=== PATIENT | female | born 1955 | race Caucasian/White ===

== ENCOUNTER → 2017-10-03 09:53 | Day surgery (SDC) | payer BC ==
[~2017-10-03 09:53] MED LIST: Buffered Lidocaine 0.9% SYRIN* 5 ML/SYR SYRINGE INTRADERM ONE; Buffered Lidocaine 0.9% SYRIN* 5 ML/SYR SYRINGE ONE; Cyclopentolate 1% OPTH.SOL* 2 ML BTL ONE; Ketorolac 0.5% OPHTH (NF) 0.5 % 5 ML BTL ONE; Lidocaine 1% MPF wEPI 200,000* 30 ML SDV ONE; Lidocaine 1% MPF* 2 ML VIAL ONE; Lidocaine 2% EPI 1:200000 MPF* 20 ML VIAL ONE; Lidocaine 2% PF * 5 ML VIAL ONE; Midazolam* 1 MG/ML 2 ML VIAL (2 MG) ONE; Neomycin/Polymy/Dex OPTH.SUSP* MAXITROL 0.1% 5 ML ONE; Phenylephrine 2.5% OPTH.SOL* 2 ML BTL ONE; Povidone Iodine 5% OPTH* 30 ML BTL ONE; Proparacaine 0.5% OPHTH.SOL* 15 ML BTL ONE; Propofol* 10 MG/ML 20 ML BTL IV PUSH ONE; acetaZOLAMIDE TAB* 250 MG ONE
[2017-10-03 13:31] VITALS: BP 109/77
--- NOTE | 2017-10-04 03:51 | OP ---
DATE OF OPERATION: 10/03/17 - [facility] DATE OF : 53 SURGEON: Carmelo Jacques M.D. PREOPERATIVE DIAGNOSIS: Cataract, right eye. POSTOPERATIVE DIAGNOSIS: Cataract, right eye. OPERATIVE PROCEDURE: Extracapsular cataract extraction with intraocular lens implant right eye. DESCRIPTION OF PROCEDURE: The patient was brought to the operating room after being given 1/2% Alcaine with epinephrine drops in the preoperative area. The eye was prepped and draped in the usual sterile fashion. Sterile drape and eyelid speculum were placed. Again, topical 1/2% Alcaine with epinephrine was given. A paracentesis incision was made at the 9 o'clock position with the No.75 blade. Clear cornea incision 2.2 x 2.2-mm was created at the 12 o'clock position starting at the anterior limbus using the 2.2-mm keratome. The anterior chamber was irrigated with 0.4 mL of 1% non-preservative intracameral lidocaine and filled with DisCoVisc. A capsulorrhexis was completed using the cystotome and the Utrata forceps. Hydrodissection was performed with balanced salt solution. The lens nucleus was removed with the Phacoemulsification handpiece without incident. Cortex was removed with the irrigation-aspiration handpiece. The capsular bag was re-inflated using DisCoVisc, and an [id number] 26 implant was inserted with the shooter, oriented to the 159 degree meridian. Horizontal reference meneses were made with the patient seated in the preoperative area. The irrigation-aspiration handpiece was used to remove all residual DisCoVisc. The eye was refilled with balanced salt solution and the wound checked and found to be watertight. Topical Maxitrol drops were given. [id number]/[facility] #: [id number] [facility]
== END | disposition home or self-care (01) ==
LOC: OREAST 09:53
PROVIDERS: ATTEND Specialist
DX: H25.11 Age-related nuclear cataract, right eye (principal); Z79.82 Long term (current) use of aspirin; Z79.899 Other long term (current) drug therapy
CPT/HCPCS: A9270-GY; J2001; J2250; J2704; V2787

== ENCOUNTER 2017-10-10 06:38 | Day surgery (SDC) | payer BC ==
[~2017-10-10 06:38] MED LIST changes: +Acetaminophen TAB* 325 MG PO PRN; -Buffered Lidocaine 0.9% SYRIN* 5 ML/SYR SYRINGE ONE; -Cyclopentolate 1% OPTH.SOL* 2 ML BTL ONE; -Ketorolac 0.5% OPHTH (NF) 0.5 % 5 ML BTL ONE; -Lidocaine 1% MPF wEPI 200,000* 30 ML SDV ONE; -Lidocaine 1% MPF* 2 ML VIAL ONE; -Lidocaine 2% EPI 1:200000 MPF* 20 ML VIAL ONE; -Lidocaine 2% PF * 5 ML VIAL ONE; -Midazolam* 1 MG/ML 2 ML VIAL (2 MG) ONE; -Neomycin/Polymy/Dex OPTH.SUSP* MAXITROL 0.1% 5 ML ONE; -Phenylephrine 2.5% OPTH.SOL* 2 ML BTL ONE; -Povidone Iodine 5% OPTH* 30 ML BTL ONE; -Proparacaine 0.5% OPHTH.SOL* 15 ML BTL ONE; -Propofol* 10 MG/ML 20 ML BTL IV PUSH ONE; -acetaZOLAMIDE TAB* 250 MG ONE
[2017-10-10] MEDS ORDERED: Midazolam* 1 MG/ML 2 ML VIAL (2 MG) ONE (07:43)
[2017-10-10] MEDS ORDERED: fentaNYL* 50 MCG/ML 2 ML VIAL (100 MCG VIAL) ONE (08:02)
[2017-10-10] MEDS ORDERED: Propofol* 10 MG/ML 20 ML BTL IV PUSH ONE (08:03)
[2017-10-10] MEDS ORDERED: Lidocaine 2% PF * 5 ML VIAL ONE (08:03)
[2017-10-10 08:29] VITALS: BP 109/67
--- NOTE | 2017-10-10 08:55 | OP ---
OPERATIVE NOTE: DATE OF OPERATION: 10/10/17 DATE OF : 53 SURGEON: Carmelo Jacques M.D. PREOPERATIVE DIAGNOSIS: Cataract, left eye. POSTOPERATIVE DIAGNOSIS: Cataract, left eye. OPERATIVE PROCEDURE: Extracapsular cataract extraction with intraocular lens implant, left eye with IOL. PROCEDURE: The patient was brought to the operating room after being given 1/2% Alcaine with epineph rine drops in the preoperative area. The eye was prepped and draped in the usual sterile fashion. S terile drape and eyelid speculum were placed. Again, topical 1/2% Alcaine with epinephrine was given . A paracentesis incision was made at the 3 o'clock position with the No.75 blade. Clear cornea inc ision 2.2 x 2.2-mm was created at the 6 o'clock position starting at the anterior limbus using the 2. 2-mm keratome. The anterior chamber was irrigated with 0.4 mL of 1% non-preservative intracameral li docaine and filled with DisCoVisc. A capsulorrhexis was completed using the cystotome and the Utrata forceps. Hydrodissection was performed with balanced salt solution. The lens nucleus was removed wi th the Phacoemulsification handpiece without incident. Cortex was removed with the irrigation-aspira tion handpiece. The capsular bag was re-inflated using DisCoVisc and an [id number] 25.5 implant was inse rted with the shooter oriented to the 41-degree meridian. Horizontal reference meneses were made with the patient in seated position in the preoperative area. The irrigation-aspiration handpiece was use d to remove all residual DisCoVisc. The eye was refilled with balanced salt solution and the wound c hecked and found to be watertight. Topical Maxitrol drops were given. [id number]/[facility] #: [id number]
[2017-10-10] MEDS ORDERED: Neomycin/Polymy/Dex OPTH.SUSP* MAXITROL 0.1% 5 ML ONE (12:59)
[2017-10-10] MEDS ORDERED: Phenylephrine 2.5% OPTH.SOL* 2 ML BTL ONE (12:59)
[2017-10-10] MEDS ORDERED: Lidocaine 1% MPF* 2 ML VIAL ONE (12:59)
[2017-10-10] MEDS ORDERED: Proparacaine 0.5% OPHTH.SOL* 15 ML BTL ONE (12:59)
[2017-10-10] MEDS ORDERED: Ketorolac 0.5% OPHTH (NF) 0.5 % 5 ML BTL ONE (12:59)
[2017-10-10] MEDS ORDERED: Povidone Iodine 5% OPTH* 30 ML BTL ONE (12:59)
[2017-10-10] MEDS ORDERED: acetaZOLAMIDE TAB* 250 MG ONE (12:59)
[2017-10-10] MEDS ORDERED: Cyclopentolate 1% OPTH.SOL* 2 ML BTL ONE (12:59)
[2017-10-10] MEDS ORDERED: Lidocaine 2% EPI 1:200000 MPF* 20 ML VIAL ONE (12:59)
== END 2017-10-10 08:40 | disposition home or self-care (01) ==
LOC: OREAST 06:38
PROVIDERS: ATTEND Specialist
DX: H25.12 Age-related nuclear cataract, left eye (principal); E03.9 Hypothyroidism, unspecified; A60.00 Herpesviral infection of urogenital system, unspecified; F41.9 Anxiety disorder, unspecified; Z85.3 Personal history of malignant neoplasm of breast; Z87.891 Personal history of nicotine dependence; F11.90 Opioid use, unspecified, uncomplicated
CPT/HCPCS: A9270-GY; J2250; J2704; J3010; V2787

== ENCOUNTER 2017-12-26 10:29 | Day surgery (SDC) | payer BC ==
[~2017-12-26 10:29] MED LIST changes: -Acetaminophen TAB* 325 MG PO PRN; +Famotidine TAB* 20 MG PO ONE; +Scopolamine 1.5 mg* PATCH TRANSDERM ONE; +Sodium Citrate/Citric Acid* 15 ML UDC PO ONE
[2017-12-26] MEDS ORDERED: Sodium Citrate/Citric Acid* 15 ML UDC ONE (10:36)
[2017-12-26] MEDS ORDERED: Famotidine IV* 10 MG/ML 2 ML (20 mg) ONE (10:36)
[2017-12-26] MEDS ORDERED: Scopolamine 1.5 mg* PATCH ONE (10:36)
[2017-12-26] MEDS ORDERED: Buffered Lidocaine 0.9% SYRIN* 5 ML/SYR SYRINGE ONE (10:37)
[2017-12-26] MEDS ORDERED: Famotidine TAB* 20 MG ONE (10:47)
[2017-12-26] MEDS ORDERED: Lidocaine 2% EPI 1:200000 MPF* 20 ML VIAL ONE (13:05)
[2017-12-26] MEDS ORDERED: Dexamethasone IV* 4 MG/ML 1 ML (4 MG) ONE (13:32)
[2017-12-26] MEDS ORDERED: Succinylcholine* 20 MG/ML 10 ML VIAL ONE (13:32)
[2017-12-26] MEDS ORDERED: Propofol* 10 MG/ML 20 ML BTL IV PUSH ONE (13:32)
[2017-12-26] MEDS ORDERED: Ondansetron INJ* 2 MG/ML VIAL ONE (13:32)
[2017-12-26] MEDS ORDERED: Lidocaine 2% PF * 5 ML VIAL ONE (13:33)
[2017-12-26] MEDS ORDERED: fentaNYL* 50 MCG/ML 2 ML VIAL (100 MCG VIAL) ONE (13:37)
[2017-12-26] MEDS ORDERED: Naloxone* 0.4 MG/ML 1 ML VIAL IV PRN (14:01)
[2017-12-26] MEDS ORDERED: fentaNYL* 50 MCG/ML 2 ML VIAL (100 MCG VIAL) IV PRN (14:01)
[2017-12-26] MEDS ORDERED: DiMENhydriNATE IV* 50 MG/ML VIAL IV PUSH PRN (14:01)
[2017-12-26] MEDS ORDERED: EPHEDrine (Pressors)* 50 MG/ML VIAL ONE (14:10)
[2017-12-26] MEDS ORDERED: HYDROcodone/ACETAMIN 5-325 MG* 1 TAB ONE (15:02)
[2017-12-26 16:15] VITALS: BP 133/82
--- NOTE | 2017-12-27 11:24 | OP ---
DATE OF OPERATION: 12/26/17 - [facility] DATE OF : 53 SURGEON: Dar Brandon M.D. PRE-OP DIAGNOSIS: Thyroglossal duct cyst. POST-OP DIAGNOSIS: Thyroglossal duct cyst. OPERATIVE PROCEDURE: Excision of thyroglossal duct cyst with mid portion of hyoid bone. BRIEF HISTORY: This 62-year-old presented with a midline neck mass highly suspicious for thyroglossal duct cyst. DESCRIPTION OF PROCEDURE: The patient was taken to the operating room, general anesthesia was given, the patient was intubated. Neck was then prepped and draped in the usual fashion. Curvilinear incision was made approximately just below the hyoid and the strap muscles were identified and divided out laterally. The cyst was identified. Careful sharp and blunt dissection was carried out of the cyst throughout until it was skeletonized on to the hyoid bone. The hyoid bone was then skeletonized removing the suprahyoid muscles and the infrahyoid muscles. Once this was done, the mid portion of the hyoid between the cornu of the hyoid was cut and the cyst in the hyoid bone was tracked as far as we could in the tongue base and then removed. With this in mind, the wound was copiously irrigated. Small TLS drain was applied. The wound was closed in 2 layers. The patient was then awakened and sent to recovery room in stable condition. Instrument and sponge count correct. Blood loss minimal. [id number]/[facility] #: [id number] [facility]D
[2017-12-29] MEDS ORDERED: Scopolamine PATCH Remove* 1 NOTE MISC PATCH OFF ONE (06:00)
== END 2017-12-26 16:15 | disposition home or self-care (01) ==
LOC: OR 10:29
PROVIDERS: ATTEND Otolaryngology
DX: Q89.2 Congenital malformations of other endocrine glands (principal); E03.9 Hypothyroidism, unspecified; M19.90 Unspecified osteoarthritis, unspecified site; K21.9 Gastro-esophageal reflux disease without esophagitis
CPT/HCPCS: 88305; 88311; A9270-GY; J0330; J1100; J2405; J2704; J3010

== ENCOUNTER 2017-12-30 09:38 | Emergency (ER) | payer BC ==
--- OUTSIDE RECORDS SUMMARY | 2017-12-30 09:44 | XMS REPORT ---
:1955 External Reference #:[id number] Author Organization [facility] Address [address] [place] [address] Phone [phone] Care Team Providers Name Role Phone Monty Oneill M.D. Primary Care Physician Unavailable Payers Type Date Identification Numbers Payment Provider Subscriber Commercial Policy Number: [id number] [employer] Jil Mahoney PayID: [id number] [address] [address] [place] [address] Problems Date Description Provider Status Onset: Seasonal allergy Active Onset: Carcinoma of breast Active Note: (H/O) Onset: 09/18/2017 Nuclear senile cataract Carmelo Jacques M.D. Active Onset: 10/06/2017 Presence of intraocular lens Tamy Olson O.D. Active Onset: 12/11/2017 Vitreous degeneration Tamy Olson O.D. 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 Family History Date Family Member(s) Problem(s) Comments Father No Current Problems Mother No Current Problems First Sister Glaucoma Grandfather Glaucoma Social History Type Date Description Comments Marital Status Legal Status: Occupation Self-Employed [employer] Work Status Retired ETOH Use Occasionally consumes alcohol Smoking Patient has never smoked Recreational Drug Use Denies Drug Use Daily Caffeine Consumes on average 2 cups of regular coffee per day Allergies, Adverse Reactions, Alerts Date Description Reaction Status Severity Comments 09/18/2017 NKDA active 09/18/2017 Shellfish active Medications Medication Date Status Form Strength Qnty SIG Indications Ordering Provider Artificial 10/03/ Active Solution 0.2-0.2-1% as needed Carmelo Jacques M.D. Valacyclovir / Active Tablets 500mg Unknown HCL 0000 Cymbalta / Active Caps DR Immanuel 60mg Unknown 0000 Levothyroxine / Active Tablets 75mcg Unknown Sodium 0000 Aspirin 81 Low / Active Chewtabs 81mg Unknown Dose 0000 Mucinex / Active Tablets ER 600mg Unknown 0000 12HR Tylenol 8 Hour / Active Tablets ER 650mg Unknown 0000 Oxycodone HCL / Active Tablets 5mg Unknown 0000 Gabapentin / Active Tablets 600mg Skezas, 0000 Monty Hodge Duloxetine HCL / Active Caps DR Gambino 20mg Skezas, 0000 Monty Hodge Zolpidem / Active Tablets 10mg [place], Tartrate Monty Hodge Alprazolam / Active Tablets 0.5mg Skezas, 0000 Monty Hodge Timolol Maleate 10/05/ Hx Solution 0.5% 20ml 1 drop Carmelo Soria 2017 - left eye [place], 10/17/ twice a M.D. 2017 day Simbrinza 10/04/ Hx Suspension 1-0.2% 8ml 1 drop Carmelo JNara 2017 - right eye [place], 10/04/ twice a M.D. 2017 day Ciprofloxacin 09/24/ Hx Solution 0.3% 10ml instill Carmelo J. HCL 2017 - one drop [place], 10/24/ in the M.D. 2017 right eye three times a day, start the day before surgery Ketorolac 09/24/ Hx Solution 0.5% 10ml use one Carmelo J. Tromethamine 2017 - drop in [place], 10/25/ the right M.D. 2017 eye three times a day, start the day before surgery Prednisolone 09/24/ Hx Suspension 1% 15ml 1 drops Carmelo J. Acetate 2017 - right eye [place], 10/25/ three M.D. 2017 times a day. taper as directed Results Description No Information Procedures Date CPT Code Description Status 12/11/2017 56212 Est Patient Intermediate Exam Completed 11/30/2017 601 [place] Completed 10/10/2017 04932 Extracapsular Cataract Extraction W/Intraocular Lens Completed 10/03/2017 80101 Extracapsular Cataract Extraction W/Intraocular Lens Completed 09/24/2017 13757 Ophthalmic Biometry Completed 09/18/2017 78170 Gonioscopy Completed 09/18/2017 21457 New Patient Comprehensive Exam Completed Encounters Type Date Location Provider CPT E/M Dx Office Visit 09/24/2017 11:15a Carmelo Jacques MD, [place], [address] H25.11 joshua Hodge H25.12 Plan of Care 12/25/2017 - Tamy Olson O.D.H43.811 Vitreous degeneration, right eyeComments:You have Vitreous Floaters. If you have any changed in your floaters or flashing lights, please contact this office.Follow up:1 yearH35.413 Lattice degeneration of retina, bilateralComments:Smoking can increase the risk of developing or worsening any eye related disease, as well as affect your overall health. If you are a smoker, we strongly recommend that you quit.If you are not a smoker, we strongly recommend that you do not start.
--- OUTSIDE RECORDS SUMMARY | 2017-12-30 09:44 | XMS REPORT ---
:1955 External Reference #:[id number] Author Organization [facility] Address [address] [place] [address] Phone [phone] Care Team Providers Name Role Phone Monty Oneill M.D. Primary Care Physician Unavailable Payers Type Date Identification Numbers Payment Provider Subscriber Commercial Policy Number: [id number] [employer] Jil Mahoney PayID: [id number] [address] [address] [place] [address] Problems Date Description Provider Status Onset: Seasonal allergy Active Onset: Carcinoma of breast Active Note: (H/O) Onset: 09/18/2017 Nuclear senile cataract Carmelo Jacques M.D. 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 Active Onset: 10/06/2017 Presence of intraocular lens Tamy Olson O.D. Active Family History Date [...] / Active Tablets 600mg Skezas, 0000 Monty Hogde Duloxetine HCL / Active Caps DR Gambino [...] Information Procedures Date CPT Code Description Status 11/30/2017 601 [place] Completed 10/10/2017 94171 Extracapsular Cataract Extraction W/Intraocular Lens Completed 10/03/2017 94685 Extracapsular Cataract Extraction W/Intraocular Lens Completed 09/24/2017 78413 Ophthalmic Biometry Completed 09/18/2017 74371 Gonioscopy Completed 09/18/2017 53136 New Patient Comprehensive Exam Completed Encounters Type Date Location Provider CPT E/M Dx Office Visit 09/24/2017 11:15a Carmelo Jacques MD, Carm[place], [address] H25.11 joshua Hodge H25.12 Plan of Care 12/11/2017 - Tamy Olson O.D.H43.811 Vitreous degeneration, right eyeComments:You have Vitreous Floaters. If you have any changed in your floaters or flashing lights, please contact this office.Follow up:2 week DFE or sooner as [id number] Lattice degeneration of retina, bilateralComments: Smoking can increase the risk of developing or worsening any eye related disease , as well as affect your overall health. If you are a smoker, we strongly recommend that you quit.If you are not a smoker, we strongly recommend that you do not start.
[2017-12-30 10:41] VITALS: BP 107/78
--- NOTE | 2017-12-30 11:03 | ED ---
Throat Pain/Nasal Congestion - HPI Summary HPI Summary: 62 female presents to ED with complaints of throat swelling and discomfort after a surgery on her thyroid that was done 5 days ago. Patient states she was told by Dr Brandon, her surgeon, to come to the ED. Patient had surgery 5 days ago to have a thyroid cyst removed. Has since over the past few days, after removing drain had increased swelling and discomfort. Patient states she has to lean her head backward in order for the swelling to not push on her airway. No other complaints. NO discharge. Admits to having a "Rattle" in her throat that is hard to clear. No fever/chills or redness to wound. No PMHx other than thyroid disease. Did take her prescribed pain medication yesterday, nothing today. Is able to swallow, it is just sore. - History of Current Complaint Chief Complaint: EDShortnessOfBreath Time Seen by Provider: 12/30/17 09:45 Hx Obtained From: Patient Onset/Duration: Sudden Onset, Lasting Days, Still Present, Worse Since Severity: Moderate Associated Signs And Symptoms: Positive: Dysphagia, FB Sensation - swelling pushing on "windpipe" Cough: None - Allergies/Home Medications Allergies/Adverse Reactions: Allergies Allergy/AdvReac Type Severity Reaction Status Date / Time shellfish derived Allergy Severe Rash Verified 12/30/17 09:45 Home Medications: Home Medications Biotin 1 mg PO QAM 12/30/17 [History Confirmed 12/30/17] PMH/Surg Hx/FS Hx/Imm Hx Endocrine/Hematology History: Reports: Hx Thyroid Disease - ON MEDICATION FOR Cardiovascular History: Reports: Other Cardiovascular Problems/Disorders - TENDS TO HAVE LOW BLOOD PRESSURE GI History: Reports: Hx Gastroesophageal Reflux Disease - ON MEDICATION FOR Musculoskeletal History: Reports: Hx Arthritis - RECENT BILATERAL HIP REPLACEMENT Sensory History: Reports: Hx Cataracts - BILATERAL, Hx Contacts or Glasses - GLASSES Denies: Hx Hearing Aid Opthamlomology History: Reports: Hx Cataracts - BILATERAL, Hx Contacts or Glasses - GLASSES - Cancer History Hx Chemotherapy: Yes - Surgical History Surgery Procedure, Year, and Place: 2012-LUMPECTOMY TO THE RIGHT BREAST WITH 19 LYMPH NODES REMOVED. 08/2017- BILATERAL HIP REPLACEMENT-[place]. TONSILLECTOMY A CHILD. 1969-APPENDECTOMY. 4668-W-[id number]. 1990- HYSTERECTOMY. ROTATOR CUFF REPAIR-2007&2008-BILATERAL. CARPAL TUNNEL BILATERAL -2000 Hx Anesthesia Reactions: No - Immunization History Immunizations Up to Date: Yes Infectious Disease History: No Infectious Disease History: Denies: Traveled Outside the [place] in Last 30 Days - Family History Known Family History: Positive: None - Social History Alcohol Use: Occasionally Substance Use Type: Reports: None Smoking Status (MU): Former Smoker Amount Used/How Often: 1 PPD X ON AND OFF FOR 25 YRS Have You Smoked in the Last Year: No Review of Systems Constitutional: Negative Positive: Sore Throat - sore, Other - swelling at neck effecting windpipe Cardiovascular: Negative Respiratory: Negative Musculoskeletal: Negative Skin: Negative Psychological: Normal All Other Systems Reviewed And Are Negative: Yes Physical Exam Triage Information Reviewed: Yes Vital Signs On Initial Exam: Initial Vitals Temp Pulse Resp BP Pulse Ox 97.1 F 97 15 113/83 100 12/30/17 09:40 12/30/17 09:40 12/30/17 09:40 12/30/17 09:40 12/30/17 09:40 Vital Signs Reviewed: Yes Appearance: Positive: Well-Appearing, No Pain Distress, Well-Nourished Skin: Positive: Warm, Skin Color Reflects Adequate Perfusion, Dry, Other - no discharge, erythema or abnormal findings of wound. Negative: Cold, Numb, Cyanosis @, Pale, Erythema @, Cold Injury Head/Face: Positive: Normal Head/Face Inspection Eyes: Positive: Conjunctiva Clear ENT: Positive: Pharynx normal, TMs normal, Uvula midline - airway patent. Negative: Nasal congestion, Tonsillar swelling, Tonsillar exudate Neck: Positive: Supple, Tenderness @ - thryoid from recent surgery, moderate edema around the area midline anterior neck, firm, no palpable abscess appreciated Respiratory/Lung Sounds: Positive: Clear to Auscultation, Breath Sounds Present , Other - <2 sec cap refill, no sign of respiratory distress. Negative: Rales, Rhonchi, Stridor, Tracheal Deviation, Wheezes Cardiovascular: Positive: Normal, RRR, Pulses are Symmetrical in both Upper and Lower Extremities. Negative: Murmur, Rub Musculoskeletal: Positive: Normal, Strength/ROM Intact Neurological: Positive: Normal, Sensory/Motor Intact, Alert, Oriented to Person Place, Time Diagnostics - Vital Signs Vital Signs Temp Pulse Resp BP Pulse Ox 12/30/17 10:30 89 107/78 100 12/30/17 10:00 97 117/84 100 12/30/17 09:56 101 100 12/30/17 09:54 123/85 12/30/17 09:40 97.1 F 97 15 113/83 100 - Laboratory Lab Statement: Any lab studies that have been ordered have been reviewed, and results considered in the medical decision making process. EENT Course/Dx - Course Course Of Treatment: airway stable, normal vitals. appears to need another drain placed after recent surgery and may have been removed too soon. Dr Brandon aware and saw patient in ED. Drain was placed. Follow up in office. no other concerns or work up required. aware of worsening signs and symptoms. - Differential Diagnoses Differential Diagnoses: Other - post-op complicaton, neck swelling, post-op edema, dyphagia - Diagnoses Provider Diagnoses: Post-operative complication, Neck swelling - Provider Notifications Discussed Care Of Patient With: Dr rBandon Time Discussed With Above Provider: 10:25 Instructed by Provider To: MD Will See In ED Discharge - Discharge Plan Condition: Stable Disposition: HOME Referrals: Monty Oneill MD [Primary Care Provider] - Additional Instructions: Any new or worsening symptoms such as difficulty breathing or trouble swallowing again please return. Follow up with Dr Brandon as discussed.
--- NOTE | 2017-12-30 11:46 | CONS ---
CONSULTATION REPORT: DATE OF CONSULT: 12/30/17 - EMERGENCY DEPT BRIEF HISTORY: This is a 62-year-old female who underwent a thyroglossal duct cyst [place] operation, complained this morning of some increasing swelling of her neck and some symptoms of dysphagia and feeling of airway compromise, came to the emergency room. PHYSICAL EXAMINATION: On examination, there was no significant swelling of the neck. Flexible laryngoscopy showed no significant edema of the larynx. There was some minimal edema in the base of the tongue, but this was not in anyway compromising the airway. CLINICAL IMPRESSION: The patient's postoperative swelling minimal in nature, did not require any drainage. No indication of infection. I suggest she just take it easy. We will continue on a soft diet, elevating the head of the bed and returning back to see as needed. [id number]/[facility] #: [id number] MTDD
== END 2017-12-30 10:58 | disposition home or self-care (01) ==
LOC: ED 09:38
DX: T81.89XA Other complications of procedures, not elsewhere classified, initial encounter (principal); R22.1 Localized swelling, mass and lump, neck; K21.9 Gastro-esophageal reflux disease without esophagitis; Z87.891 Personal history of nicotine dependence